=== PATIENT | male | born 1965 | race Caucasian/White ===

== ENCOUNTER 2017-12-26 12:58 | Day surgery (SDC) | payer OTHER ==
[~2017-12-26] VITALS: Ht 177.8 cm; Wt 115.7 kg
[~2017-12-26 12:58] MED LIST: ACYCLOVIR400 MG PO; CYCLOBENZAPRINE10 MG PO; FLUCONAZOLE150 MG PO; FOLIC ACID1 MG PO
[2017-12-26] MEDS ORDERED: MINOCYCLINE HCL50 MG PO (13:22)
--- NOTE | 2017-12-26 15:42 | NUR ---
12/26/17 1542 Patricia Hoff 1536- PT ARRIVES TO PACU AWAKE AND ORIENTED. PT REPORTS NO PAIN, NAUSEA, OR DIZZINESS. OXYGEN SAT HIGH 90'S ON RA.
--- NOTE | 2017-12-27 12:04 | OR ---
[facility] [address] [place], [place] [address] Signed DATE OF OPERATION: 12/26/2017 SURGEON: Khalida Jones MD PREOPERATIVE DIAGNOSIS: Colon screening. POSTOPERATIVE DIAGNOSIS: Normal colon to cecum. PROCEDURE: Total colonoscopy to cecum. ANESTHESIA: Intravenous sedation, fentanyl 100 mcg, Versed 8 mg. INDICATION: A 52-year-old white man, patient of Dr. Trace Hanson, is referred for screening colonoscopy. He has never had colonoscopy in the past. He has no symptoms of bleeding, diarrhea, or constipation. He does have a family history of colon cancer (mother with rectal cancer). He is admitted to undergo colonoscopy. He understands the risks of bleeding, infection, and perforation. FINDINGS: The prep was good. Complete colonoscopy was undertaken to the cecum without question. Good visualization of the ileocecal valve and appendiceal orifice was noted. The entire colon was free of polyps, colitis, diverticular formation, or cancer. DESCRIPTION OF PROCEDURE: The patient was brought to the endoscopy suite and placed in the lateral decubitus position, given intravenous sedation to the point of slurred speech and nystagmus. Digital rectal examination was undertaken. An Olympus video colonoscope was passed in the rectum and manipulated throughout the colon, ultimately intubating the cecum itself. The ileocecal valve and appendiceal orifice were normal. Irrigation was undertaken as needed, and the scope was carefully withdrawn and examination throughout showed no sign of abnormality, specifically no polyps, diverticular formation, colitis, or cancer. Retroflexed view was normal as well. The scope was removed, and the patient was taken to the recovery room in good condition. CONCLUDING DIAGNOSIS: Electronically Signed By: KHALIDA JONES MD 12/27/17 1204 PATIENT NAME: STEFANIE CHAPMAN OPERATIVE REPORT DATE OF : 69 REPORT #: [id number] PHYSICIAN: KHALIDA JONES MD PCP: TRACE HANSON MD REPORT IS CONFIDENTIAL AND NOT TO BE RELEASED WITHOUT AUTHORIZATION [address] [place], [place] [address] Signed Normal colon. PLAN: Recommend repeat colonoscopy in 5 years given family history of rectal cancer, sooner if symptoms should occur. MD NIA Ibanez/MODL /[id number] cc: Trace Hanson MD Copies: TRACE HANSON MD ~ Electronically Signed By: KHALIDA JONES MD 12/27/17 1204 PATIENT NAME: STEFANIE CHAPMAN OPERATIVE REPORT DATE OF : 69 REPORT #: [id number] PHYSICIAN: KHALIDA JONES MD PCP: TRACE HANSON MD REPORT IS CONFIDENTIAL AND NOT TO BE RELEASED WITHOUT AUTHORIZATION
== END 2017-12-26 16:12 | disposition home or self-care (01) ==
LOC: DS 12:58 → OPS 12:58 → DS 14:00 → OPS 14:00 → DS 01-03 13:00
PROVIDERS: Surgery
PROC: 0DJD8ZZ Inspection of Lower Intestinal Tract, Via Natural or Artificial Opening Endoscopic (ICD-10-PCS; principal; 2017-12-26 14:00)
DX: Z12.11 Encounter for screening for malignant neoplasm of colon (principal); D48.5 Neoplasm of uncertain behavior of skin; Z80.0 Family history of malignant neoplasm of digestive organs
CPT/HCPCS: 99153; G0500; J2250; J3010; J7120

== ENCOUNTER 2021-03-29 03:38 | Emergency (ER) | payer OTHER ==
[~2021-03-29] VITALS: Ht 177.8 cm; Wt 122.6 kg
[~2021-03-29 03:38] MED LIST changes: +MINOCYCLINE HCL50 MG PO
[2021-03-29] MEDS ORDERED: LISINOPRIL20 MG PO (03:57)
[2021-03-29] MEDS ORDERED: DOXYCYCLINE MO100 MG PO (03:57)
[2021-03-29] MEDS ORDERED: VENLAFAXINE H37.5 M1 PO (03:58)
[2021-03-29] MEDS ORDERED: NORVASC5 MG PO (04:28)
== END 2021-03-29 04:40 | disposition home or self-care (01) ==
LOC: ED 03:38
DX: K12.2 Cellulitis and abscess of mouth (principal); I10 Essential (primary) hypertension; Z79.899 Other long term (current) drug therapy
CPT/HCPCS: 99283; J1100

== ENCOUNTER 2024-08-25 19:25 | Emergency (ER) | payer OTHER ==
[~2024-08-25] VITALS: Ht 177.8 cm; Wt 111.2 kg
[~2024-08-25 19:25] MED LIST changes: +COZAAR50 MG PO; +DOXYCYCLINE MO100 MG PO; +HYDROCHLOROTHIA25 MG PO; +HYDROCODON-ACE1 EA10 PO; +LISINOPRIL20 MG PO; +MINOCYCLINE HC100 MG PO; +NORVASC5 MG PO; +REVATIO20 MG PO; +VENLAFAXINE H37.5 M1 PO
[2024-08-25] MEDS ORDERED: ZEPBOUND10 MG/0.5 (19:52)
[2024-08-25] MEDS ORDERED: SODIUM CHLORIDE 0.9% 1,000 ML IV ONE (20:00)
[2024-08-25] MEDS ORDERED: ondansetron HCL 4 MG/2 ML VIAL IV ONE (20:00)
[2024-08-25] MEDS ORDERED: MORPHINE SULFATE 4 MG/ML VIAL IV ONE (20:00)
[2024-08-25 20:25] LABS: BASOPHILS 0.3 % (0.2-1.2); EOSINOPHILS 0 % (0.8-7.0); HEMATOCRIT 49.3 % (40.1-51.0); LYMPHOCYTES 19.6 % (21.8-53.1); MCH 30.2 PG (25.7-32.2); MCHC 34.5 g/dL (32.3-36.5); MCV 87.7 fL (79.0-92.2); MONOCYTES 5.3 % (5.3-12.2); NEUTROPHILS 74.6 % (34.0-67.9); PLATELET COUNT 318 K/uL (163-337); RBC 5.62 M/uL (4.63-6.08)
[2024-08-25 20:41] LABS: ALBUMIN 4.2 g/dL (3.4-5.0); ALBUMIN/GLOBULIN RATIO 1.05 (1.1-2.4); ANION GAP 15.1 (7-21); BILIRUBIN, TOTAL 0.4 mg/dL (0.2-1.0); BUN/CREATININE RATIO 20.8 (6.0-28.6); CALCIUM 9.5 mg/dL (8.5-10.1); CREATININE, SERUM 1.25 mg/dL (0.70-1.30); POTASSIUM 4.1 mmol/L (3.5-5.1); PROTEIN, TOTAL 8.2 g/dL (6.4-8.2)
[2024-08-25] MEDS ORDERED: HYDROmorphone HCL 1 MG/ML SYR IV ONE (21:15)
[2024-08-25 21:57] LABS: BILIRUBIN, URINE NEGATIVE (negative); BLOOD/HGB, URINE NEGATIVE (Negative); KETONE, URINE TRACE (Negative); LEUK ESTERASE, URINE NEGATIVE (negative); NITRITE, URINE NEGATIVE (negative); PH, URINE 5.5 (5-7)
[2024-08-25 22:21] LABS: BACTERIA, URINE RARE /hpf (negative); CASTS, URINE HYALINE 2+ \\lpf; COLLECTION TYPE, URINE CLEAN CATCH; CRYSTALS, URINE NONE SEEN (0-1+); EPITHELIAL CELLS, URINE SQUAMOUS 1+ /lpf (0-1+); REFLEX CULTURE, URINE No (No)
[2024-08-25] MEDS ORDERED: PERCOCET 5-3251 EACH PO (22:40)
[2024-08-25] MEDS ORDERED: LACTULOSE10 GM PO (22:40)
[2024-08-25] MEDS ORDERED: LYRICA75 MG PO (22:40)
[2024-08-25] MEDS ORDERED: OXYCODONE/ACETAMINOPHEN 1 TAB HOME.PACK PO ONE (22:45)
[2024-08-25] MEDS ORDERED: LACTULOSE 20 GM/30 ML CUP PO ONE (22:45)
[2024-08-25 23:15] VITALS: BP 135/98
== END 2024-08-25 23:05 | disposition home or self-care (01) ==
LOC: ED 19:25
PROVIDERS: Family Medicine
DX: S39.012A Strain of muscle, fascia and tendon of lower back, initial encounter (principal); K59.00 Constipation, unspecified; I10 Essential (primary) hypertension; X58.XXXA Exposure to other specified factors, initial encounter; Z79.899 Other long term (current) drug therapy
CPT/HCPCS: 36415; 74176; 80053; 81001; 85025; 96374; 96375; 99283-25; J1171; J2270; J2405; J7030